=== PATIENT | male | born 1970 | race Caucasian/White ===

== ENCOUNTER → 2017-08-19 | Outpatient (CLI) | payer BC ==
--- NOTE | 2017-08-19 15:27 | Diagnostic Imaging Report ---
PROCEDURE:TESTICULAR ULTRASOUND COMPARISON:None. INDICATIONS:Not provided. TECHNIQUE: Batista-scale and color doppler images of the testicles and scrotal contents were obtained. Duplex imaging with spectral waveform analysis was performed of the testicular arteries and veins. FINDINGS: See same day ultrasound for full report. CONCLUSION: See same day ultrasound for full report. Dictated by: Carl Roland M.D. on 08/19/2017 at 15:27 Electronically approved by: Carl Roland M.D. on 08/19/2017 at 15:27
--- NOTE | 2017-08-19 15:27 | Diagnostic Imaging Report ---
PROCEDURE:TESTICULAR DOPPLER ULTRASOUND COMPARISON:Abdominal CT 3 INDICATIONS:Spermatocele of epididymis. TECHNIQUE: Batista-scale and color doppler images of the testicles and scrotal contents were obtained. Duplex imaging with spectral waveform analysis was performed of the testicular arteries and veins. FINDINGS: RIGHT SCROTUM: Testicle: 4.3 x 2.2 x 2.8 cm. Normal in echogenicity. Normal color Doppler signal throughout with normal spectral Doppler arterial and venous waveforms. No masses. Epididymal head: 1.1 x 0.6 x 0.6 cm. Normal in echogenicity without increased vascularity. No masses or cysts. Hydrocele: Small Varicocele: None LEFT SCROTUM: Testicle: 4.1 x 2 x 2.9 cm. Normal in echogenicity. Normal color Doppler signal throughout with normal spectral Doppler arterial and venous waveforms. No masses. Epididymal head: 1.3 x 0.7 x 1.4 cm. Normal in echogenicity without increased vascularity. No masses or cysts. Hydrocele: Small Varicocele: None Additional findings: Focused ultrasound of the umbilical region without and with Valsalva is without bulge to suggest hernia. CONCLUSION: 1. No evidence of epididymal head cysts or spermatoceles. 2. Small hydroceles. 3. Otherwise, unremarkable scrotal ultrasound. 1. Dictated by: Carl Roland M.D. on 08/19/2017 at 15:26 Electronically approved by: Carl Roland M.D. on 08/19/2017 at 15:26
== END ==
LOC: US 12:16
PROVIDERS: ATTEND Urology
DX: N43.40 Spermatocele of epididymis, unspecified (principal)
CPT/HCPCS: 76870; 93976

== ENCOUNTER 2022-01-13 09:12 | Emergency (ER) | payer BC ==
[~2022-01-13] VITALS: Ht 175.3 cm; Wt 95.3 kg
[2022-01-13] MEDS ORDERED: KETOROLAC TROMETHAMINE 60 MG/2 ML VIAL IM NR (11:00)
== END 2022-01-13 11:30 | disposition home or self-care (01) ==
LOC: ER 09:17
DX: S92.351A Displaced fracture of fifth metatarsal bone, right foot, initial encounter for closed fracture (principal); I10 Essential (primary) hypertension; X58.XXXA Exposure to other specified factors, initial encounter; Y93.39 Activity, other involving climbing, rappelling and jumping off
CPT/HCPCS: 99283

== ENCOUNTER 2022-04-29 11:35 | Emergency (ER) | payer BC ==
[~2022-04-29] VITALS: Ht 175.3 cm; Wt 95.3 kg
[2022-04-29] MEDS ORDERED: METHOCARBAMOL500 MG PO (14:25)
== END 2022-04-29 15:00 | disposition home or self-care (01) ==
LOC: ER 11:45
DX: S83.61XA Sprain of the superior tibiofibular joint and ligament, right knee, initial encounter (principal); R25.2 Cramp and spasm; I10 Essential (primary) hypertension; X58.XXXA Exposure to other specified factors, initial encounter; Y92.009 Unspecified place in unspecified non-institutional (private) residence as the place of occurrence of the external cause
CPT/HCPCS: 99283

== ENCOUNTER 2022-10-31 17:06 | Emergency (ER) | payer BC ==
[~2022-10-31] VITALS: Ht 175.3 cm; Wt 95.3 kg
[~2022-10-31 17:06] MED LIST: METHOCARBAMOL500 MG PO
[2022-10-31 17:29] VITALS: O2SAT 100
== END 2022-10-31 18:23 | disposition home or self-care (01) ==
LOC: ER 17:17
DX: M25.461 Effusion, right knee (principal); I10 Essential (primary) hypertension; E78.5 Hyperlipidemia, unspecified; K21.9 Gastro-esophageal reflux disease without esophagitis
CPT/HCPCS: 99283

== ENCOUNTER 2022-11-10 06:57 | Emergency (ER) | payer BC ==
[~2022-11-10] VITALS: Ht 175.3 cm; Wt 95.3 kg
[2022-11-10 07:02] VITALS: O2SAT 100
[2022-11-10] MEDS ORDERED: CEPHALEXIN500 MG PO (07:09)
[2022-11-10] MEDS ORDERED: MUPIROCIN22 GM TOP (07:09)
[2022-11-11] MEDS ORDERED: BACTRIM DS TAB1 EACH PO (11:33)
== END 2022-11-10 07:56 | disposition home or self-care (01) ==
LOC: ER 07:00
DX: M70.22 Olecranon bursitis, left elbow (principal); I10 Essential (primary) hypertension; E78.5 Hyperlipidemia, unspecified; K21.9 Gastro-esophageal reflux disease without esophagitis
CPT/HCPCS: 99283

== ENCOUNTER 2022-11-11 11:20 | Emergency (ER) | payer BC ==
[~2022-11-11] VITALS: Ht 175.3 cm; Wt 95.3 kg
[2022-11-11 11:20] VITALS: O2SAT 99
[~2022-11-11 11:20] MED LIST changes: +CEPHALEXIN500 MG PO; +MUPIROCIN22 GM TOP
[2022-11-11] MEDS ORDERED: BACTRIM DS TAB1 EACH PO (11:33)
== END 2022-11-11 12:55 | disposition home or self-care (01) ==
LOC: ER 11:27
DX: L03.114 Cellulitis of left upper limb (principal); M70.22 Olecranon bursitis, left elbow; I10 Essential (primary) hypertension; E78.5 Hyperlipidemia, unspecified; K21.9 Gastro-esophageal reflux disease without esophagitis
CPT/HCPCS: 99283

== ENCOUNTER 2022-11-24 09:59 | Emergency (ER) | payer BC ==
[~2022-11-24] VITALS: Ht 175.3 cm; Wt 95.3 kg
[~2022-11-24 09:59] MED LIST changes: +BACTRIM DS TAB1 EACH PO
[2022-11-24 10:01] VITALS: O2SAT 98
[2022-11-24] MEDS ORDERED: CLINDAMYCIN HC150 MG PO (10:22)
== END 2022-11-24 10:28 | disposition home or self-care (01) ==
LOC: ER 10:02
DX: M70.22 Olecranon bursitis, left elbow (principal); I10 Essential (primary) hypertension
CPT/HCPCS: 99283

== ENCOUNTER 2024-01-15 09:27 | Emergency (ER) | payer BC ==
[~2024-01-15] VITALS: Ht 175.3 cm; Wt 100.2 kg
[~2024-01-15 09:27] MED LIST changes: +BENZONATATE100 MG PO; +CLINDAMYCIN HC150 MG PO
[2024-01-15 10:11] VITALS: TEMP 98.8
[2024-01-15 10:56] LABS: BASOPHILS % 0.2 % (0.0-1.0); HEMATOCRIT 39.5 % (38.2-49.6); LYMPHOCYTES # (AUTO) 0.9 (1.0-3.2); LYMPHOCYTES % 4.4 % (18.0-39.1); MEAN CORPUSCULAR HEMOGLOBIN 29.2 pg (28-32); MEAN CORPUSCULAR HGB CONC 32.9 g/dL (31-35); MEAN CORPUSCULAR VOLUME 88.8 fL (81-99); MONOCYTES # (AUTO) 0.6 (0.2-0.8); MONOCYTES % 2.9 % (4.4-11.3); NEUTROPHILS # (AUTO) 17.7 (2.1-6.9); NEUTROPHILS % 91.7 % (38.7-80.0); PLATELET COUNT 470 x10e3/uL (140-360); RED BLOOD COUNT 4.45 x10e6/uL (4.3-5.7); RED CELL DISTRIBUTION WIDTH 12.3 % (11.7-14.4); WHITE BLOOD COUNT 19.34 x10e3/uL (4.8-10.8)
[2024-01-15 11:17] LABS: ALBUMIN 3.8 g/dL (3.5-5.0); ANION GAP 14.2 mmol/L (8-16); BILIRUBIN,TOTAL 0.4 mg/dL (0.2-1.2); CALCIUM 9.4 mg/dL (8.4-10.2); CREATININE, SERUM 1.09 mg/dL (0.72-1.25); TOTAL PROTEIN 7.5 g/dL (6.5-8.1)
[2024-01-15 11:18] LABS: POTASSIUM 3.2 mmol/L (3.5-5.1)
[2024-01-15 12:17] LABS: RESPIRATORY SYNC. VIRUS NEGATIVE (NEGATIVE)
[2024-01-15 12:20] LABS: INFLUENZAE A&B ANTIGEN (RAPID) NEGATIVE (NEGATIVE)
[2024-01-15 13:52] VITALS: PULSE 88; RESP 16
[2024-01-15 15:04] VITALS: BP 137/88; PULSE 89; RESP 16; O2SAT 96
== END 2024-01-15 13:52 | disposition home or self-care (01) ==
LOC: ER 09:37
DX: D72.829 Elevated white blood cell count, unspecified (principal); I10 Essential (primary) hypertension; R73.03 Prediabetes; K21.9 Gastro-esophageal reflux disease without esophagitis; Z11.52 Encounter for screening for COVID-19
CPT/HCPCS: 36415; 71045; 80053; 85025; 87400; 87420; 93005; 99284; U0002

== ENCOUNTER 2024-09-07 09:17 | Emergency (ER) | payer BC ==
[~2024-09-07] VITALS: Ht 175.3 cm; Wt 100.2 kg
[2024-09-07 09:17] VITALS: TEMP 98.7
[2024-09-07] MEDS: DEXAMETHASONE SOD PHOS 10 MG/1 ML VIAL IV ONE (10:05)
[2024-09-07] MEDS: SODIUM CHLORIDE 0.9% IV SCH (10:05)
[2024-09-07 10:16] LABS: BILIRUBIN,URINE SMALL (NEGATIVE); CLARITY,URINE CLOUDY (CLEAR); COLOR,URINE ORANGE (YELLOW); GLUCOSE, URINE NEGATIVE (NEGATIVE); KETONES,URINE TRACE (NEGATIVE); LEUKOCYTE ESTERASE ,URINE NEGATIVE (NEGATIVE); NITRITE,URINE POSITIVE (NEGATIVE); PH,URINE 5.5 (5 - 7); PROTEIN,URINE DIPSTICK 2+ (NEGATIVE)
[2024-09-07 10:21] LABS: CORONAVIRUS COVID-19 AG NEGATIVE (NEGATIVE); INFLUENZA A AG NEGATIVE (NEGATIVE); INFLUENZA B AG NEGATIVE (NEGATIVE)
[2024-09-07 10:24] LABS: BASOPHILS % 0.1 % (0.0-1.0); HEMATOCRIT 34.8 % (38.2-49.6); HEMOGLOBIN 12.2 g/dL (14.0-18.0); MEAN CORPUSCULAR HEMOGLOBIN 30.3 pg (28-32); MEAN CORPUSCULAR HGB CONC 35.1 g/dL (31-35); MEAN CORPUSCULAR VOLUME 86.6 fL (81-99); MONOCYTES # (AUTO) 1.8 (0.2-0.8); MONOCYTES % 5.5 % (4.4-11.3); NEUTROPHILS # (AUTO) 28.3 (2.1-6.9); NEUTROPHILS % 89.5 % (38.7-80.0); PLATELET COUNT 384 x10e3/uL (140-360); RED BLOOD COUNT 4.02 x10e6/uL (4.3-5.7); RED CELL DISTRIBUTION WIDTH 11.9 % (11.7-14.4)
[2024-09-07 10:34] LABS: AMORPHOUS SEDIMENT,URINE MANY; BACTERIA,URINE MANY /HPF; EPITHELIAL CELLS,URINE FEW /LPF
[2024-09-07 10:35] LABS: WHITE BLOOD COUNT 31.62 x10e3/uL (4.8-10.8)
[2024-09-07 10:49] LABS: ALBUMIN 3.1 g/dL (3.5-5.0); ALBUMIN/GLOBULIN RATIO 1.1 (0.8-2.0); ANION GAP 16.1 mmol/L (8-16); BILIRUBIN,TOTAL 1.1 mg/dL (0.2-1.2); CALCIUM 8.4 mg/dL (8.4-10.2); CREATININE, SERUM 1.51 mg/dL (0.72-1.25); TOTAL PROTEIN 5.8 g/dL (6.5-8.1)
[2024-09-07 10:51] LABS: POTASSIUM 3.1 mmol/L (3.5-5.1)
[2024-09-07 11:13] LABS: INR 0.9; PARTIAL THROMBOPLASTIN TIME 18.6 seconds (23.8-35.5); PROTHROMBIN TIME 12.7 seconds (11.9-14.5)
[2024-09-07 11:16] LABS: BAND NEUTROPHILS % (MANUAL) 6 %; LYMPHOCYTES % (MANUAL) 2 % (19-48); MONOCYTES % (MANUAL) 6 % (3.4-9.0); NEUTROPHILS % (MANUAL) 86 % (40-74); PLATELET ESTIMATE ADEQUATE; PLATELET MORPHOLOGY COMMENT NORMAL; RBC MORPHOLOGY COMMENT NORMAL
[2024-09-07] MEDS ORDERED: CEFDINIR300 MG PO (11:40)
[2024-09-07] MEDS ORDERED: DOXYCYCLINE HY100 MG PO (11:40)
[2024-09-07 12:06] VITALS: PULSE 92; RESP 21; O2SAT 94
== END 2024-09-07 12:25 | disposition home or self-care (01) ==
LOC: ER 09:25
DX: R05.9 Cough, unspecified (principal); J18.9 Pneumonia, unspecified organism; N39.0 Urinary tract infection, site not specified; R53.1 Weakness; I10 Essential (primary) hypertension; R73.03 Prediabetes; K21.9 Gastro-esophageal reflux disease without esophagitis; Z11.52 Encounter for screening for COVID-19; R94.31 Abnormal electrocardiogram [ECG] [EKG]
CPT/HCPCS: 36415; 71046; 80053; 81001; 83605; 85025; 85610; 85730; 87040; 87086; 87428; 93005; 99284; J1100; J7030